=== PATIENT | female | born 1970 | race Caucasian/White ===

== ENCOUNTER → 2024-10-16 14:28 | Outpatient (REF) | payer BC, SELFPAY | LOC: WDC 14:28 | PROVIDERS: ATTENDING PHYSICIAN Nurse Practitioner Adult Health; FAMILY PHYSICIAN Internal Medicine | DX: Z12.31 Encounter for screening mammogram for malignant neoplasm of breast (principal) | CPT/HCPCS: 77063; 77067 ==

== ENCOUNTER 2025-05-28 10:23 | Emergency (ER) | payer BC, SELFPAY ==
[2025-05-28] VITALS (8 sets, daily range): BP systolic 113–127; BP diastolic 70–86
[2025-05-28 11:23] LABS: Hematocrit 45.4 % (37.0-47.0); Hemoglobin 14.8 g/dL (12.0-16.0); Mean Corp Hgb Conc. 32.6 g/dL (33.0-37.0); Mean Corpuscular Volume 89.7 fL (81.0-99.0); Nucleated Red Blood Cells % 0 %; Platelet Count 334 10^3/uL (130-400); Red Cell Dist. Width 12.1 % (11.5-14.5)
[2025-05-28 11:41] LABS: Urine Character Clear (Clear)
[2025-05-28 11:54] LABS: ALT (SGPT) 18 U/L (0-35); AST (SGOT) 25 U/L (14-36); Albumin 5.5 g/dl (3.5-5.0); Alkaline Phosphatase 79 U/L (38-126); Blood Urea Nitrogen 22 mg/dl (7-17); Calcium 9.8 mg/dl (8.4-10.2); Carbon Dioxide 20 mmol/L (22-30); Chloride 105 mmol/L (98-107); Glucose 86 mg/dl (70-99); Lipase 90 U/L (23-300); Potassium 4.7 mmol/L (3.5-5.1); Sodium 137 mmol/L (135-145); Total Protein 8.7 g/dl (6.3-8.2); eGFR > 60.00
--- NOTE | 2025-05-28 12:14 | ED.GENMED ---
History of Present Illness
General
Chief Complaint: Abdominal Symptoms
Time Seen by Provider: 05/28/25 12:04
History of Present Illness
History of Present Illness:
Patient is a 55-year-old female with past medical history of migraine disorder, diverticulosis/diverticulitis with prior history of sepsis/perforation requiring colectomy with colostomy bag in 2021 status post reversal, GERD, and hemorrhoids, here
today for evaluation of approximately 3 days of nausea and vomiting. She reports approximately 10 episodes of vomiting per day. She has not been able to keep anything down. She also endorses loss of appetite. She has noted mild congestion and a
slight headache yesterday however headache has since resolved. No fevers. No cough or sore throat. No abdominal pain. No diarrhea. No recent travel outside of the country. No sick contacts. She denies eating anything out of the ordinary. No
other acute complaints. She did take 8 mg of sublingual Zofran yesterday leftover from a prior prescription without relief.
Past History
Past History
ED Past Medical History: Other (diverticulitis) and Other (RA on Plaquinel, Migraines)
ED Past Surgical History: Gynecological and Other (thyroid nodule)
Social History
Tobacco: Non-smoker
Review of Systems
Review of Systems
All Other Systems: ROS reviewed and negative except as documented in HPI and ROS
Phy Exam
Physical Exam
Physical Exam:
GENERAL: Alert , in no apparent distress
NECK: Supple
ENT: o/p clr, mmm.
CARDIAC: Regular rate and rhythm .
LUNGS: Clear breath sounds bilaterally, no acute respiratory distress, no wheezes/rales/rhonchi
ABDOMEN: Soft, mild tenderness to palpation along the left lower quadrant, no rebound, no guarding
NEUROLOGICAL: Alert and oriented, no focal neuro deficits
SKIN: Warm and dry, skin intact.
MUSCULOSKELETAL: No edema, well perfused.
PSYCH: Normal and appropriate interaction.
Sepsis
Sepsis Screening
Sepsis Assessment: Sepsis Ruled Out
Sepsis Screen
Sepsis Screen: Sepsis Ruled Out
Date: 05/28/25
Time: 17:13
Course
Orders/Labs/Results
Orders:
Orders
05/28/25 11:08
Complete Blood Count/With Diff Urgent
Comprehensive Metabolic Panel Urgent
Lipase Urgent
Magnesium Urgent
Comment: ADD ON
Phosphorus Urgent
Comment: ADD ON
05/28/25 11:11
Urinalysis Reflex To Culture Urgent
Date Specimen was Collected: 05/28/25
Time Specimen was Collected: 10:58
Urine Microscopic Reflex Cult Urgent
05/28/25 12:13
Add On- LAB Urgent
Tests Added?: magnesium, phosphorus
Electrocardiogram (*1) Urgent
Reason for Study: QTc Monitoring
EKG- Treatment ONCE
0.9% Sodium Chloride 1000 ml [Nss] 1,000 ml IV BOLUS
Ondansetron Injectable [Zofran] 4 mg IV NOW STA
05/28/25 12:17
CT Abd/pelvis W Iv Cont Urgent
Comment:
Reason For Exam: vomiting/nausea, llq abd tenderness
Abnormal Lab Results
05/28/25 05/28/25
11:08 11:11
MCHC 32.6 L g/dL
(33.0-37.0)
Absolute Neuts (auto) 8.6 H 10^3/uL
(1.4-6.5)
Absolute Lymphs (auto) 1.1 L 10^3/uL
(1.2-3.4)
Neutrophils % 85.4 H %
(42.2-75.2)
Lymphocytes % 10.7 L %
(20.5-51.1)
Carbon Dioxide 20 L mmol/L
(22-30)
BUN 22 H mg/dl
(7-17)
Phosphorus 4.8 H mg/dl
(2.5-4.5)
Total Protein 8.7 H g/dl
(6.3-8.2)
Albumin 5.5 H g/dl
(3.5-5.0)
Urine Ketones 3+ A
(Negative)
Ur Occult Blood Reflex 3+ A
(Negative)
Urine RBC 3-6 A /HPF
(0-2)
Urine Bacteria (Reflex) Few A
(Negative)
Urine Albumin (Reflex) 2+ A
(Neg - Trace)
05/28/25 11:08
05/28/25 11:08
Vital Signs
Initial and Last Documented VS:
Initial Vital Signs
Temp Pulse Resp BP Pulse Ox
99.6 F 102 18 127/86 99
05/28/25 10:52 05/28/25 10:52 05/28/25 10:52 05/28/25 10:52 05/28/25 10:52
Last Documented Vital Signs
Temp Pulse Resp BP Pulse Ox
99.6 F 71 18 116/73 97
05/28/25 10:52 05/28/25 16:02 05/28/25 16:02 05/28/25 16:00 05/28/25 16:02
MDM/Problems Addressed
Differential Diagnosis Includes:
Patient is a 55-year-old female with past medical history of migraine disorder, diverticulosis/diverticulitis with prior history of sepsis/perforation requiring colectomy with colostomy bag in 2021 status post reversal, GERD, and hemorrhoids, here
today for evaluation of approximately 3 days of nausea and vomiting. Overall, patient appears well. Vitals remarkable for a mildly elevated heart rate and slightly elevated temperature. Physical examination described above. We will obtain
urinalysis and basic screening labs. Will insert IV and provide IV Zofran. Will obtain EKG to assess for QTc.
05/28/2025 15:03: Screening labs revealed a mildly elevated BUN with a normal creatinine. Urinalysis with ketonuria. There is also evidence of hematuria. CT abdomen and pelvis reveals findings consistent with duodenitis/enteritis. No
extraluminal air. Chronic changes of prior sigmoid resection without acute changes noted. Patient reevaluated at bedside and made aware of findings. She appears well overall and notes improvement of symptoms after medication administration.
Symptoms/findings at this time consistent with a suspected viral etiology. No significant signs of dehydration. We will trial a p.o. challenge and reassess. If patient not able to tolerate p.o. will plan for admission. If able to tolerate p.o.
she feels more comfortable at home will discharge with antiemetic medication supportive measures, and close follow-up with her doctor.
05/28/2025 17:02: P.o. challenge successful. Patient reassessed at bedside. She reports improvement of symptoms overall. I did offer the patient admission to the hospital for further monitoring but patient declined. She feels more comfortable at
home. Will discharge at this time with recommendations to closely follow-up with her primary care provider. Will provide p.o. Zofran. Recommend supportive measures and close follow-up. Patient also made aware of her microscopic hematuria and
recommended to have this rechecked by her doctor. Patient provided strict return precautions for worsening symptoms. All questions answered. Stable for discharge.
*Pulse Oximetry
SaO2: 99
Patient hypoxic: no
*Critical Care Note
Total Time (30-74mins, 75-104mins- exclusive of procedures): Not Applicable
ED Attending Note
-
Portions of this chart may have been created with voice recognition software.� Occasional wrong word or��sound alike� substitutions may have occurred due to the inherent limitations of voice recognition software.
Discharge Plan
Departure
Patient Disposition: Home (Routine Discharge)
Date of Disposition: 05/28/25
Time of Disposition: 17:03
Patient with high blood pressure during this ER visit?: No
Condition: Fair
Discharge Problem:
Enteritis, Nausea and vomiting
Instructions: Nausea and vomiting in adults
Prescriptions:
New
ondansetron 4 mg tablet,disintegrating
4 mg PO Q8H PRN (Reason: nausea and vomiting) 3 Days Qty: 9 0RF
No Action
hydroxychloroquine 200 MG tablet
300 mg PO DAILY
famotidine 20 MG tablet
20 mg PO BID
hydrocodone-acetaminophen 5-325 mg tablet
1 tab PO Q6H PRN (Reason: pain) Qty: 20 0RF
Referrals:
Helen Polo DO [Family Provider, Internal Medicine] - Follow up in 5-7 days
Activity Restrictions/Additional Instructions:
You were seen today for evaluation of nausea and vomiting.
We obtained a workup including laboratory testing which shows a mild amount of dehydration. Your urine testing reveals evidence of dehydration and a small amount of microscopic red blood cells. Please have this rechecked by your primary care
provider.
We performed a CAT scan of your abdomen and pelvis which reveals findings consistent with inflammation/infection of the small intestine. This is likely caused by a stomach virus.
Drink plenty of fluids. Rest. Avoid heavy and spicy foods. We recommend following the brat diet which includes bananas, rice, applesauce, and toast.
Begin taking the antinausea medication ondansetron (Zofran) as directed as needed for nausea/vomiting.
Follow-up with your doctor within the next 5 to 7 days for close reevaluation.
Return for any new, worsening, or concerning symptoms.
Interventions
Interventions:
*Risk Screen - Suicide Last Done: 05/28/25 10:57
*General Assessment Last Done: 05/28/25 12:20
*Neglect/Abuse Screening Last Done: 05/28/25 10:57
*ED- Fall Risk Assessment Last Done: 05/28/25 12:20
*ED COVID-19 Vaccine History Last Done: 05/28/25 12:20
TC-Fnfhgc-Hhyhhonlym Assessment Last Done: 05/28/25 12:20
Discharge Date and Time
Print Language: YAKUT
[2025-05-28] MEDS: NSS 1000 IV (12:22)
[2025-05-28] MEDS: ZOFRAN 4 MG IV (12:23)
[2025-05-28 12:25] LABS: Urine Squamous Cell 0-2 /LPF (Few)
[2025-05-28 12:28] LABS: Urine White Cell 0-2 /HPF (0-5)
[2025-05-28 12:45] LABS: Magnesium 2.3 mg/dl (1.6-2.3)
== END 2025-05-28 17:16 | disposition home or self-care (01) ==
LOC: EMR 10:23
PROVIDERS: Emergency Medicine; EMERGENCY PHYSICIAN Emergency Medicine; FAMILY PHYSICIAN Internal Medicine
DX: K52.9 Noninfective gastroenteritis and colitis, unspecified (principal); Z90.49 Acquired absence of other specified parts of digestive tract; Z87.19 Personal history of other diseases of the digestive system
CPT/HCPCS: 96374; 96361; 99284; 74177; 80053; 81003; 81015; 83690; 83735; 84100; 85025; 93005; Q9967

== ENCOUNTER → 2025-09-03 14:19 | Outpatient (REF) | payer BC, SELFPAY | LOC: HWRAD 14:19 | PROVIDERS: ATTENDING PHYSICIAN Internal Medicine | DX: G43.009 Migraine without aura, not intractable, without status migrainosus (principal); R51.9 Headache, unspecified | CPT/HCPCS: 70450 ==

== ENCOUNTER → 2025-09-28 14:30 | Outpatient (REF) | payer BC, SELFPAY | LOC: HWRCS 14:30 | PROVIDERS: ATTENDING PHYSICIAN Internal Medicine | DX: G43.009 Migraine without aura, not intractable, without status migrainosus (principal) | CPT/HCPCS: 93306 ==

== ENCOUNTER → 2025-10-19 14:54 | Outpatient (REF) | payer BC, SELFPAY | LOC: WDC 14:54 | PROVIDERS: ATTENDING PHYSICIAN Nurse Practitioner Adult Health; FAMILY PHYSICIAN Internal Medicine | DX: Z12.31 Encounter for screening mammogram for malignant neoplasm of breast (principal); M85.80 Other specified disorders of bone density and structure, unspecified site | CPT/HCPCS: 77063; 77067; 77080 ==